=== PATIENT | female | born 1995 | race Caucasian/White ===

== ENCOUNTER 2018-10-29 23:01 | Inpatient (IN) | payer SELFPAY ==
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
[~2018-10-29] VITALS: Ht 165.1 cm; Wt 77.3 kg
--- NOTE | ~2018-10-29 | O ---
[place], [place] OPERATIVE NOTE NAME: CUONG VALERIO UNIT #: [id number] ROOM: 517 DOCTOR: EVELYN GRAHAM MD BIRTHDATE: [birth year] DOS: 10/30/2018 INDICATIONS: A 23-year-old patient who has presented with epigastric pain, pelvic pain extensively studied. Her CT scan of the abdomen, nonspecific inflammatory possibility around the sigmoid colon and epigastric pain. PROCEDURE: Today's procedure part of investigation is panendoscopy and colonoscopy. PREMEDICATION: Propofol. SCOPE: Olympus forward-viewing gastroscope Q10 video. REPORT: After putting the patient in left lateral position and application of lubricant to the scope, the scope was introduced. Thereafter, under direct visualization, I advanced through the length of esophagus without difficulty. Esophagus, cervical, thoracic distally carefully examined. Gastritis was noticed. Antral biopsy obtained. Duodenal bulb, second and third part within normal limit. The patient extubated, tolerated the procedure well. IMPRESSION: Gastritis. PLAN AND DISCUSSION: She can benefit from omeprazole 20 mg 1 every day, we will proceed with colonoscopy. INDICATIONS: The patient has presented with abnormal CT scan of the abdomen, suspected sigmoid thickening. PROCEDURE: Today's procedure part of investigation is colonoscopy plus photographic series. PREMEDICATION: Propofol. SCOPE: Olympus forward-viewing colonoscope 10L video. REPORT: After putting the patient in left lateral position and application of lubricant to the scope, the scope was introduced. Thereafter, under direct visualization, passed through the length of colon without difficulty. Scope was negotiated to about hepatic flexure up to this point entirely normal colon. The right-sided stool retention seen, photographed. Air was suctioned out. The patient was extubated, tolerated the procedure well. IMPRESSION: Normal colonoscopic examination minus retained stool in the ascending colon. No evidence of colitis. PLAN AND DISCUSSION: We can resume feeding. Follow up as an outpatient. [place], [place] OPERATIVE NOTE NAME: CUONG VALERIO UNIT #: [id number] ROOM: 517 DOCTOR: EVELYN GRAHAM MD BIRTHDATE: [birth year] EVELYN GRAHAM MD CM:OPRECORD:OPERATIVE NOTE [id number] EVELYN GRAHAM MD 11/18/18 0738 interface
--- NOTE | ~2018-10-29 | EKG ---
[place], [place] ELECTROCARDIOGRAM REPORT NAME: CUONG VALERIO UNIT #: [id number] ROOM: 517 DOCTOR: XIANG DRAFT REPORT BIRTHDATE: [birth year] [facility] Test Date: 2018-10-30 Test Time: 03:00:08 Pat Name: CUONG VALERIO Department: 5E Room: [facility] 1 Gender: F Headend Technician: Gwen Joyce : 1995 Requested By: NELLY SKY Order Number: [id number] Reading MD: Mihir Lizama MD Measurements Intervals [place] Rate: 69 P: 21 WY: 141 QRS: 44 QRSD: 91 T: 33 QT: 409 QTc: 438 Interpretive Statements Sinus rhythm Baseline wander in lead(s) V1,V2,V4 Electronically Signed On 10-30-2018 12:26:50 PST by Mihir Lizama MD CM:EKGRPT:ELECTROCARDIOGRAM REPORT [id number] NELLY GARCIA DRAFT REPORT NELLY SKY DO
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
[~2018-10-29 23:01] MED LIST: KEPPRA500 MG PO; PROZAC10 MG PO; RISPERDAL0.25 MG PO
[2018-10-29 23:02] VITALS: BP 132/80
[2018-10-29 23:18] LABS: BILIRUBIN NEGATIVE (NEGATIVE); BLOOD NEGATIVE (NEGATIVE); CLARITY CLEAR (CLEAR); COLOR YELLOW (YELLOW); GLUCOSE NEGATIVE (NEGATIVE); KETONE NEGATIVE (NEGATIVE); LEUKO ESTERASE NEGATIVE (NEGATIVE); NITRITE NEGATIVE (NEGATIVE); PH 7.5 (5.0-9.0); UROBILINOGEN 0.2 E.U./dl (0.2-1.0)
[2018-10-29 23:32] LABS: WBC 0-2 wbc/hpf (0-5)
[2018-10-29 23:41] LABS: BASO # 0.1 10*3/uL (0.0-0.1); BASO % 0.3 % (0.0-1.0); EOS # 0.1 10*3/uL (0.0-0.4); EOS % 0.6 % (1.0-4.0); HEMATOCRIT 35.5 % (37.0-47.0); HEMOGLOBIN 11.7 g/dl (12.0-16.0); LYMPH # 2.5 10*3/uL (1.3-4.4); MEAN CELL VOLUME 90.6 fl (81.0-99.0); MEAN CORPUSCULAR HGB 29.8 pg (27.0-31.0); MEAN PLATELET VOLUME 10.8 fl (9.6-12.3); MONO # 0.9 10*3/uL (0.1-1.0); MONO % 5.6 % (3.0-9.0); NEUT # 13.1 10*3/uL (2.3-7.9); NEUT % 78.1 % (47.0-73.0); PLATELET COUNT AUTOMATED 273 10*3/uL (130-400); RED BLOOD COUNT 3.92 10*6/uL (4.10-5.10); RED CELL DISTRI WIDTH 13.7 % (0-14.5); WHITE BLOOD COUNT 16.7 10*3/uL (4.8-10.8)
[2018-10-29 23:48] LABS: URINE AMPHETAMINES < 1000 (1000ng/ml); URINE BARBITURATES < 200 (200ng/ml); URINE BENZODIAZEPINES < 200 (200ng/ml); URINE CANNABINOIDS (THC) < 50 (50ng/ml); URINE COCAINE < 300 (300ng/ml); URINE METHADONE < 300 (300ng/ml); URINE OPIATES < 300 (300ng/ml)
[2018-10-29 23:52] LABS: URINE PHENCYCLIDINE < 25 (25ng/ml)
[2018-10-29 23:55] LABS: ALKALINE PHOSPHATASE 87 U/L (45-117); BUN 19 mg/dl (7-24); CHLORIDE 107 mmol/L (98-107); CREATININE 0.84 mg/dL (0.55-1.02); LIPASE 98 U/L (73-393); POTASSIUM 3.4 mmol/L (3.5-5.1); SGOT/AST 10 IU/L (3-35); SGPT/ALT 16 U/L (12-78); SODIUM 140 mmol/L (136-145); TOTAL PROTEIN 7.8 gm/dL (6.4-8.2)
[2018-10-29 23:58] LABS: BETA-HCG, QUANT < 1.0 mIU/mL (1-3)
[2018-10-30] VITALS (10 sets, daily range): BP systolic 90–116; BP diastolic 37–75
--- NOTE | 2018-10-30 02:06 | NUR ---
PT STABLE AND READY FOR TRANSPORT TO INPATIENT ROOM.
--- NOTE | 2018-10-30 02:15 | NUR ---
Time: 214 A 23 year old F admitted to 5E under services of SHEREE GUTIÉRREZ DO Pt. arrived via bed from ER. Chief complaint: ABD PAIN. THERESE STRONG
--- NOTE | 2018-10-30 03:05 | NUR ---
REQUESTED AND RECEIVED MORPHINE IV PER PRN ORDER FOR COMPLAINTS OF ABD PAIN RATING AN 8. CALL LIGHT WITHIN REACH. WILL MONITOR FOR EFFECTIVENESS
--- NOTE | 2018-10-30 04:00 | NUR ---
MORPHINE APPEARS EFFECTIVE. SLEEPING.
--- NOTE | 2018-10-30 06:00 | NUR ---
PATIENT QUESTIONING "WHEN CAN I HAVE THAT MORPHINE." EXPLAINED TO PATIENT MED ORDERED Q6H PRN. PATIENT ALSO REQUESTING DIET. WAITING DR GRAHAM CONSULT
[2018-10-30 06:30] LABS: BASO # 0.1 10*3/uL (0.0-0.1); BASO % 0.5 % (0.0-1.0); EOS # 0.1 10*3/uL (0.0-0.4); EOS % 0.7 % (1.0-4.0); HEMATOCRIT 31.8 % (37.0-47.0); HEMOGLOBIN 10.6 g/dl (12.0-16.0); LYMPH # 2.8 10*3/uL (1.3-4.4); LYMPH % 26.1 % (27.0-41.0); MEAN CELL VOLUME 90.3 fl (81.0-99.0); MEAN CORPUSCULAR HGB 30.1 pg (27.0-31.0); MEAN CORPUSCULAR HGB CONC 33.3 g/dl (33.0-37.0); MEAN PLATELET VOLUME 10.7 fl (9.6-12.3); MONO # 0.7 10*3/uL (0.1-1.0); MONO % 6.3 % (3.0-9.0); NEUT # 7.2 10*3/uL (2.3-7.9); NEUT % 66.2 % (47.0-73.0); PLATELET COUNT AUTOMATED 225 10*3/uL (130-400); RED BLOOD COUNT 3.52 10*6/uL (4.10-5.10); RED CELL DISTRI WIDTH 13.8 % (0-14.5); WHITE BLOOD COUNT 10.8 10*3/uL (4.8-10.8)
[2018-10-30 06:45] LABS: ALBUMIN 3.2 gm/dl (3.1-4.5); ALKALINE PHOSPHATASE 69 U/L (45-117); BUN 19 mg/dl (7-24); CHLORIDE 112 mmol/L (98-107); CHOLESTEROL 117 mg/dL (<200); FREE T4 0.76 ng/dl (0.76-1.46); HDL CHOLESTEROL 58 mg/dl (40-60); LDL CHOLESTEROL 54 mg/dL (9-159); PHOSPHOROUS 4.1 mg/dL (2.5-4.9); POTASSIUM 3.8 mmol/L (3.5-5.1); SGOT/AST 9 IU/L (3-35); SGPT/ALT 12 U/L (12-78); SODIUM 141 mmol/L (136-145); TOTAL PROTEIN 6.5 gm/dL (6.4-8.2); TRIGLYCERIDES 27 mg/dl (<150); VLDL CHOLESTEROL 5 mg/dL (6-40)
[2018-10-30 07:00] LABS: ACT PARTIAL THROMBO TIME 27.2 SECONDS (20.8-31.5)
--- NOTE | 2018-10-30 07:50 | NUR ---
DR GRAHAM CONTACTED REGARDING CONSULT. NEW ORDERS RECEIVED
--- NOTE | 2018-10-30 07:53 | NUR ---
PT RESTING IN BED. EYES CLOSED. WILL MONITOR
--- NOTE | 2018-10-30 09:32 | NUR ---
PT REQUESTED AND GIVEN MORPHINE FOR C/O ABD PAIN WILL MONITOR
[2018-10-30 09:39] LABS: VITAMIN D, 25-HYDROXY 10.9 ng/mL (30-100)
--- NOTE | 2018-10-30 09:41 | NUR ---
FLEETS ENEMA GIVEN PT REQUESTED TO DO HERSELF PT INSTRUCTED ON HOW TO USE
--- NOTE | 2018-10-30 10:37 | NUR ---
TAP WATER ENEMAS STARTED ORDERED
--- NOTE | 2018-10-30 12:34 | NUR ---
MORPHINE HELPED A LITTLE REBECCA MONITOR BF AT BEDSIDE
--- NOTE | 2018-10-30 17:31 | NUR ---
PT REQUESTED AND GIVEN MORPHINE FOR C/O ABD PAIN PT RATES PAIN 10/10 WILL MONITOR
--- NOTE | 2018-10-30 18:14 | NUR ---
PT RESTING IN BED. EYES CLOSED. MORPHINE APPEARS TO BE EFFECTIVE. WILL MONITOR
--- NOTE | 2018-10-30 22:17 | NUR ---
PT RESTING IN BED,, WATCHING TV. CALL LIGHT WITHIN REACH. WILL MONITOR
[2018-10-31] VITALS: BP 120/82
--- NOTE | 2018-10-31 01:20 | NUR ---
AFTER EATING 3 PACKAGES OF POPSICLES, PT C/O NAUSEA. PT ADVISED THAT SHE WAS PREVIOUSLY MEDICATED W/IVP ZOFRAN. PT REQUESTING SALTINE CRACKERS. PT TEACHING GIVEN ON CLEAR LIQUID DIET. PT STATES SHE WILL FEEL BETTER IF SHE HAS SOME SOLID FOOD. ONE PACKAGE OF SALTINE CRACKERS GIVEN TO PT AT THIS TIME.
--- NOTE | 2018-10-31 02:00 | NUR ---
PT RESTING QUIETLY IN BED W/EYES CLOSED AT THIS TIME. NO FURTHER S/S OF NAUSEA/PAIN NOTED. CALL LIGHT IN REACH.
--- NOTE | 2018-10-31 05:28 | NUR ---
24 HR chart check completed.
[2018-10-31 07:09] LABS: BASO % 0.5 % (0.0-1.0); EOS # 0.1 10*3/uL (0.0-0.4); EOS % 2.4 % (1.0-4.0); HEMATOCRIT 30.5 % (37.0-47.0); HEMOGLOBIN 9.8 g/dl (12.0-16.0); LYMPH # 2.4 10*3/uL (1.3-4.4); LYMPH % 42.2 % (27.0-41.0); MEAN CELL VOLUME 91.3 fl (81.0-99.0); MEAN CORPUSCULAR HGB 29.3 pg (27.0-31.0); MEAN CORPUSCULAR HGB CONC 32.1 g/dl (33.0-37.0); MEAN PLATELET VOLUME 10.8 fl (9.6-12.3); MONO # 0.5 10*3/uL (0.1-1.0); MONO % 8.7 % (3.0-9.0); NEUT # 2.6 10*3/uL (2.3-7.9); PLATELET COUNT AUTOMATED 200 10*3/uL (130-400); RED BLOOD COUNT 3.34 10*6/uL (4.10-5.10); RED CELL DISTRI WIDTH 13.8 % (0-14.5); WHITE BLOOD COUNT 5.7 10*3/uL (4.8-10.8)
[2018-10-31 07:45] LABS: ALBUMIN 2.8 gm/dl (3.1-4.5); BUN 12 mg/dl (7-24); CHLORIDE 115 mmol/L (98-107); CREATININE 0.77 mg/dL (0.55-1.02); POTASSIUM 3.6 mmol/L (3.5-5.1); SGOT/AST 7 IU/L (3-35); SGPT/ALT 11 U/L (12-78); SODIUM 140 mmol/L (136-145)
[2018-10-31 07:46] LABS: ALKALINE PHOSPHATASE 52 U/L (45-117); TOTAL PROTEIN 5.8 gm/dL (6.4-8.2)
[2018-10-31 08:00] VITALS: BP 113/67
[2018-10-31 12:00] VITALS: BP 130/71
[2018-10-31] MEDS ORDERED: PROTONIX40 MG PO (13:14)
[2018-10-31] MEDS ORDERED: NORCO 5-325 TA1 EACH PO (13:14)
[2018-10-31] MEDS ORDERED: ZOFRAN4 MG PO (13:14)
--- NOTE | 2018-10-31 13:55 | NUR ---
Discharge instructions reviewed with patient/family. Patient receptive and verbalizes understanding. Follow-up care arranged. Written instructions given to patient/family. STEVE MCGHEE
== END 2018-10-31 14:00 | disposition home or self-care (01) | DRG 392 ==
LOC: ED 23:01 → 5E 10-30 01:43 → EDHOLD 10-30 01:43 → 5E 10-30 01:50
PROVIDERS: Emergency Medicine Emergency Medical Services; Family Medicine; Internal Medicine; Physician Assistant; ADMIT Internal Medicine
PROC: 0DJD8ZZ Inspection of Lower Intestinal Tract, Via Natural or Artificial Opening Endoscopic (ICD-10-PCS; principal; 2018-10-30)
PROC: 0DB68ZX Excision of Stomach, Via Natural or Artificial Opening Endoscopic, Diagnostic (ICD-10-PCS; principal; 2018-10-30)
DX: K29.70 Gastritis, unspecified, without bleeding (principal); K50.90 Crohn's disease, unspecified, without complications; D50.9 Iron deficiency anemia, unspecified; F41.9 Anxiety disorder, unspecified; F32.9 Major depressive disorder, single episode, unspecified; I10 Essential (primary) hypertension; F17.200 Nicotine dependence, unspecified, uncomplicated; F17.210 Nicotine dependence, cigarettes, uncomplicated; G40.909 Epilepsy, unspecified, not intractable, without status epilepticus; K27.9 Peptic ulcer, site unspecified, unspecified as acute or chronic, without hemorrhage or perforation; K44.9 Diaphragmatic hernia without obstruction or gangrene; Z98.891 History of uterine scar from previous surgery; Z88.9 Allergy status to unspecified drugs, medicaments and biological substances; Z83.3 Family history of diabetes mellitus; Z82.49 Family history of ischemic heart disease and other diseases of the circulatory system

== ENCOUNTER 2019-04-17 15:02 | Emergency (ER) | payer OTHER ==
[~2019-04-17] VITALS: Ht 160 cm; Wt 79.8 kg
[~2019-04-17 15:02] MED LIST changes: +NORCO 5-325 TA1 EACH PO; +PROTONIX40 MG PO; +ZOFRAN4 MG PO
[2019-04-17 15:50] LABS: BASO # 0.1 10*3/uL (0.0-0.1); BASO % 0.4 % (0.0-1.0); EOS # 0.2 10*3/uL (0.0-0.4); EOS % 1.3 % (1.0-4.0); HEMATOCRIT 29.7 % (37.0-47.0); HEMOGLOBIN 10.2 g/dl (12.0-16.0); LYMPH # 1.8 10*3/uL (1.3-4.4); LYMPH % 13.2 % (27.0-41.0); MEAN CELL VOLUME 94.9 fl (81.0-99.0); MEAN CORPUSCULAR HGB 32.6 pg (27.0-31.0); MEAN CORPUSCULAR HGB CONC 34.3 g/dl (33.0-37.0); MEAN PLATELET VOLUME 10.8 fl (9.6-12.3); MONO # 0.9 10*3/uL (0.1-1.0); MONO % 6.2 % (3.0-9.0); NEUT # 10.8 10*3/uL (2.3-7.9); NEUT % 78.2 % (47.0-73.0); PLATELET COUNT AUTOMATED 209 10*3/uL (130-400); RED BLOOD COUNT 3.13 10*6/uL (4.10-5.10); RED CELL DISTRI WIDTH 12.4 % (0-14.5); WHITE BLOOD COUNT 13.8 10*3/uL (4.8-10.8)
[2019-04-17 16:04] LABS: ALBUMIN 2.4 gm/dl (3.1-4.5); ALKALINE PHOSPHATASE 64 U/L (45-117); BUN 8 mg/dl (7-24); CHLORIDE 111 mmol/L (98-107); CREATININE 0.53 mg/dL (0.55-1.02); LIPASE 77 U/L (73-393); POTASSIUM 3.4 mmol/L (3.5-5.1); SGOT/AST 5 IU/L (3-35); SGPT/ALT 14 U/L (12-78); SODIUM 140 mmol/L (136-145); TOTAL PROTEIN 6.6 gm/dL (6.4-8.2)
[2019-04-17 16:05] LABS: BILIRUBIN NEGATIVE (NEGATIVE); BLOOD NEGATIVE (NEGATIVE); CLARITY SL CLOUDY (CLEAR); COLOR YELLOW (YELLOW); GLUCOSE NEGATIVE (NEGATIVE); KETONE NEGATIVE (NEGATIVE); LEUKO ESTERASE NEGATIVE (NEGATIVE); NITRITE NEGATIVE (NEGATIVE); PH 6.5 (5.0-9.0); SPECIFIC GRAVITY 1.025 (1.005-1.030); UROBILINOGEN 0.2 E.U./dl (0.2-1.0)
[2019-04-17 16:18] LABS: BACTERIA 1+; MUCOUS 1+; RBC 0-2 rbc/hpf (0-2)
[2019-04-17] MEDS ORDERED: CEPHALEXIN500 M1 PO (16:57)
== END 2019-04-17 17:07 | disposition home or self-care (01) ==
LOC: ED 15:02
PROVIDERS: Physician Assistant
DX: O23.43 Unspecified infection of urinary tract in pregnancy, third trimester (principal); B96.89 Other specified bacterial agents as the cause of diseases classified elsewhere; O99.333 Smoking (tobacco) complicating pregnancy, third trimester; Z3A.28 28 weeks gestation of pregnancy; Z88.8 Allergy status to other drugs, medicaments and biological substances; Z79.899 Other long term (current) drug therapy

== ENCOUNTER 2019-05-18 20:15 | Emergency (ER) | payer OTHER ==
[~2019-05-18] VITALS: Ht 160 cm; Wt 80.7 kg
[~2019-05-18 20:15] MED LIST changes: +CEPHALEXIN500 M1 PO
[2019-05-18 21:15] LABS: BILIRUBIN NEGATIVE (NEGATIVE); BLOOD NEGATIVE (NEGATIVE); CLARITY SL CLOUDY (CLEAR); COLOR YELLOW (YELLOW); GLUCOSE NEGATIVE (NEGATIVE); KETONE NEGATIVE (NEGATIVE); LEUKO ESTERASE TRACE (NEGATIVE); NITRITE NEGATIVE (NEGATIVE); UROBILINOGEN 0.2 E.U./dl (0.2-1.0)
[2019-05-18 21:21] LABS: BACTERIA 2+
[2019-05-18 21:22] LABS: MUCOUS TRACE
== END 2019-05-18 21:57 | disposition short-term general hospital (02) ==
LOC: ED 20:15
PROVIDERS: Emergency Medicine Emergency Medical Services
DX: O26.893 Other specified pregnancy related conditions, third trimester (principal); O16.3 Unspecified maternal hypertension, third trimester; O99.333 Smoking (tobacco) complicating pregnancy, third trimester; R10.9 Unspecified abdominal pain; F17.200 Nicotine dependence, unspecified, uncomplicated; Z3A.31 31 weeks gestation of pregnancy; Z88.8 Allergy status to other drugs, medicaments and biological substances; Z98.890 Other specified postprocedural states

== ENCOUNTER 2020-05-02 02:35 | Emergency (ER) | payer OTHER ==
[~2020-05-02] VITALS: Ht 162.5 cm; Wt 88.5 kg
[2020-05-02] MEDS ORDERED: CEPHALEXIN500 M1 PO (03:34)
== END 2020-05-02 03:55 | disposition home or self-care (01) ==
LOC: ED 02:35
DX: O99.713 Diseases of the skin and subcutaneous tissue complicating pregnancy, third trimester (principal); L02.215 Cutaneous abscess of perineum; I10 Essential (primary) hypertension; F17.200 Nicotine dependence, unspecified, uncomplicated; Z3A.29 29 weeks gestation of pregnancy; Z88.8 Allergy status to other drugs, medicaments and biological substances

== ENCOUNTER 2020-05-03 22:27 | Emergency (ER) | payer OTHER ==
[~2020-05-03] VITALS: Ht 162.5 cm; Wt 88.5 kg
== END 2020-05-04 00:41 | disposition home or self-care (01) ==
LOC: ED 22:27
DX: K61.1 Rectal abscess (principal); F17.200 Nicotine dependence, unspecified, uncomplicated; Z88.8 Allergy status to other drugs, medicaments and biological substances

== ENCOUNTER 2020-07-02 09:19 | Emergency (ER) | payer OTHER ==
[~2020-07-02] VITALS: Ht 162.5 cm; Wt 88.5 kg
[2020-07-02 10:39] LABS: BASO # 0.1 10*3/uL (0.0-0.1); BASO % 0.4 % (0.0-1.0); EOS # 0.2 10*3/uL (0.0-0.4); EOS % 1.9 % (1.0-4.0); HEMATOCRIT 30.6 % (37.0-47.0); LYMPH # 1.8 10*3/uL (1.3-4.4); LYMPH % 14.8 % (27.0-41.0); MEAN CELL VOLUME 88.4 fl (81.0-99.0); MEAN CORPUSCULAR HGB 27.5 pg (27.0-31.0); MEAN PLATELET VOLUME 10.3 fl (9.6-12.3); MONO # 0.7 10*3/uL (0.1-1.0); MONO % 5.6 % (3.0-9.0); NEUT # 9.1 10*3/uL (2.3-7.9); NEUT % 76.6 % (47.0-73.0); PLATELET COUNT AUTOMATED 390 10*3/uL (130-400); RED BLOOD COUNT 3.46 10*6/uL (4.10-5.10); RED CELL DISTRI WIDTH 14.1 % (0-14.5); WHITE BLOOD COUNT 11.9 10*3/uL (4.8-10.8)
[2020-07-02 10:55] LABS: ALBUMIN 2.7 gm/dl (3.1-4.5); ALKALINE PHOSPHATASE 90 U/L (45-117); BUN 15 mg/dl (7-24); CHLORIDE 110 mmol/L (98-107); CREATININE 0.77 mg/dL (0.55-1.02); POTASSIUM 3.5 mmol/L (3.5-5.1); SGOT/AST 5 IU/L (3-35); SGPT/ALT 7 U/L (12-78); SODIUM 142 mmol/L (136-145); TOTAL PROTEIN 7.4 gm/dL (6.4-8.2)
== END 2020-07-02 14:40 | disposition short-term general hospital (02) ==
LOC: ED 09:19
PROVIDERS: Physician Assistant
DX: O86.89 Other specified puerperal infections (principal); T81.49XA Infection following a procedure, other surgical site, initial encounter; Y92.89 Other specified places as the place of occurrence of the external cause

== ENCOUNTER 2020-10-24 17:00 | Emergency (ER) | payer OTHER ==
[~2020-10-24] VITALS: Ht 162.5 cm; Wt 88.5 kg
== END 2020-10-24 20:00 | disposition left against medical advice (07) ==
LOC: ED 17:00
DX: M25.572 Pain in left ankle and joints of left foot (principal); M79.89 Other specified soft tissue disorders; Z53.21 Procedure and treatment not carried out due to patient leaving prior to being seen by health care provider; W19.XXXA Unspecified fall, initial encounter; Y93.89 Activity, other specified; Y92.89 Other specified places as the place of occurrence of the external cause; Y99.8 Other external cause status